=== PATIENT | male | born 1950 | race Two or more races ===

== ENCOUNTER 2016-12-21 08:54 | Emergency (ER) | payer OTHER ==
[~2016-12-21] VITALS: Ht 180.3 cm; Wt 79.4 kg
--- NOTE | 2016-12-21 08:55 | NUR ---
BB SELF: NAUSEA/VOMITING X 1 DAY, DENIES DIARRHEA. NAD NOTED. PT AAO X4, AMBULATORY WITH STEADY GAIT. RR EVEN AND UNLABORED. VSS. PENDING MD AMAYA.
--- NOTE | 2016-12-21 08:57 | NUR ---
DR SKINNER AT BEDSIDE FOR EVAL.
--- NOTE | 2016-12-21 09:06 | NUR ---
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
[2016-12-21] MEDS ORDERED: ONDANSETRON HCL/PF 4 MG/2 ML VIAL ONE (09:10)
[2016-12-21] MEDS ORDERED: MORPHINE SULFATE INJ 4 MG/ML DISP.SYRIN ONE (09:10)
--- NOTE | 2016-12-21 09:20 | NUR ---
NEW IV STARTED ON LFA, 16 G. BLOOD DRAWN AND SENT TO LAB. PATIENT MEDICATED PER MD ORDERS.
[2016-12-21] MEDS ORDERED: IV NS 0.9% 1,000 ML BAG IV ONE (09:30)
[2016-12-21] MEDS ORDERED: MORPHINE SULFATE INJ 2 MG/ML DISP.SYRIN IV ONE (09:30)
[2016-12-21] MEDS ORDERED: ONDANSETRON HCL/PF 4 MG/2 ML VIAL IVP ONE (09:30)
[2016-12-21 09:32] LABS: BASOPHILS % (AUTO) 0.5 % (0.0-2.0); EOSINOPHILS % (AUTO) 0.8 % (0.0-6.0); HEMATOCRIT 41 % (39-51); HEMOGLOBIN 13.9 g/dL (13.5-17.5); LYMPHOCYTES % (AUTO) 20.2 % (20.0-44.0); MEAN CORPUSCULAR HEMOGLOBIN 30 PG (26.0-33.0); MEAN CORPUSCULAR HGB CONC 34 g/dl (31.0-36.0); MEAN CORPUSCULAR VOLUME 89 fL (80-96); MONOCYTES # (AUTO) 0.5 /CMM (0.1-1.30); NEUTROPHILS # (AUTO) 3.3 /CMM (1.8-8.9); NEUTROPHILS % (AUTO) 67.5 % (43.0-81.0); PLATELET COUNT (AUTO) 273 /CMM (150-450); RDW COEFFICIENT OF VARIATION 12.8 (11.5-15.0); RED BLOOD CELL COUNT(AUTO) 4.64 MIL/uL (4.5-6.0); WHITE BLOOD COUNT (AUTO) 4.9 K/uL (4.3-11.0)
[2016-12-21 09:37] LABS: CALCIUM, SERUM 8.4 mg/dL (8.5-10.1); CREATININE 0.7 mg/dL (0.6-1.3); POTASSIUM 3.6 mmol/L (3.5-5.1)
[2016-12-21 09:42] LABS: ALBUMIN 3.9 g/dL (3.4-5.0); BILIRUBIN,DIRECT 0.2 mg/dL (0.0-0.2); BILIRUBIN,TOTAL 0.9 mg/dL (0.2-1.0)
--- NOTE | 2016-12-21 10:09 | NUR ---
PO CHALLENGE PER MD. PATIENT GIVEN CUP OF WATER, WILL REASSESS.
--- NOTE | 2016-12-21 10:21 | NUR ---
No complications post po challenge. Patient cleared for discharge per MD. Patient discharged to home in stable condition. Written and verbal after care instructions given. Patient verbalizes understanding of instruction.
[2016-12-21 10:22] VITALS: BP 134/86
== END 2016-12-21 10:20 | disposition home or self-care (01) ==
LOC: ER 08:59
DX: K80.20 Calculus of gallbladder without cholecystitis without obstruction (principal); F32.9 Major depressive disorder, single episode, unspecified; I10 Essential (primary) hypertension
CPT/HCPCS: 36415; 80048-TC; 80076-TC; 83690-TC; 85025-TC; A4606; J2270; J2405; J7030; Z7610

== ENCOUNTER → 2018-01-22 | Emergency (ER) | payer OTHER ==
[~2018-01-22] VITALS: Ht 180.3 cm; Wt 77.1 kg
[~2018-01-22] MED LIST: LIDOCAINE VISCOUS 2% UD 15 ML UDC MM ONE; LIDOCAINE VISCOUS 2% UD 15 ML UDC ONE; MAG HYDROX/AL HYDROX/SIMETH 30 ML UDC ONE; MAG HYDROX/AL HYDROX/SIMETH 30 ML UDC PO ONE; ONDANSETRON HCL/PF 4 MG/2 ML VIAL IM ONE; ONDANSETRON HCL/PF 4 MG/2 ML VIAL ONE
[2018-01-22 04:25] VITALS: BP 161/103
--- NOTE | 2018-01-22 04:25 | NUR ---
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 PT STATES "THEY NORMALLY GIVE ME MORPHINE WHEN I GET LIKE THIS". PT AAPX4 NO ACUTE DISTRESS NOTED, RESP EVEN AND UNLABORED. URINE SAMPLE COLLECTED.
--- NOTE | 2018-01-22 04:39 | NUR ---
pt medicated as ordered.
== END | disposition home or self-care (01) ==
LOC: ER 04:16
DX: K29.70 Gastritis, unspecified, without bleeding (principal); I10 Essential (primary) hypertension; F32.9 Major depressive disorder, single episode, unspecified; Z98.890 Other specified postprocedural states; Z90.49 Acquired absence of other specified parts of digestive tract; Z60.2 Problems related to living alone
CPT/HCPCS: 96372; 99283; A4606; J2405; Z7610

== ENCOUNTER 2025-05-30 10:23 | Emergency (ER) | payer OTHER ==
[~2025-05-30] VITALS: Ht 180.3 cm; Wt 83.9 kg
[2025-05-30 10:39] VITALS: BP 146/79; TEMP 97.8; O2SAT 96
== END 2025-05-30 11:03 | disposition home or self-care (01) ==
LOC: ER 10:36
DX: S90.921D Unspecified superficial injury of right foot, subsequent encounter (principal); I10 Essential (primary) hypertension; F32.A Depression, unspecified; Z48.817 Encounter for surgical aftercare following surgery on the skin and subcutaneous tissue; X58.XXXD Exposure to other specified factors, subsequent encounter